=== PATIENT | female | born 1990 | race Caucasian/White ===

== ENCOUNTER 2019-08-25 10:40 | Emergency (ER) | payer OTHER ==
--- OUTSIDE RECORDS SUMMARY | 2019-08-25 10:54 | XMS REPORT | Continuity of Care Document ---
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 Medicine Problems Description No Information Available Social History Type Date Description Comments Sex Unknown Tobacco Use Start: Unknown Never Smoked Cigarettes Smoking Status Reviewed: 07/14/19 Never Smoked Cigarettes ETOH Use Denies alcohol use Tobacco Use Start: Unknown Patient has never smoked Recreational Drug Use Denies Drug Use Exercise Type/Frequency Exercises regularly Allergies, Adverse Reactions, Alerts Active Allergies Reaction Severity Comments Date 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 Severe 04/24/2019 Extract Inactive Allergies NKDA 04/24/2019 Medications Active Medications SIG Qnty Indications Ordering Provider Date No Active Medications Unknown 07/14/2019 History Medications No Active Medications Unknown 04/24/2019 - 04/24/2019 Immunizations Description No Information Available Vital Signs Date Vital Result Comment 07/14/2019 2:59pm Height 64.5 inches 5'4.50" Weight 167.00 lb Heart Rate 87 /min BP Systolic 128 mmHg BP Diastolic 78 mmHg O2 % BldC Oximetry 100 % BMI (Body Mass Index) 28.2 kg/m2 Last Menstrual Period [id number] 04/24/2019 1:01pm Height 64.5 inches 5'4.50" Weight 170.00 lb Heart Rate 73 /min BP Systolic Sitting 124 mmHg BP Diastolic Sitting 77 mmHg O2 % BldC Oximetry 100 % BMI (Body Mass Index) 28.7 kg/m2 Results Description No Information Available Procedures Description No Information Available Medical Devices Description No Information Available Encounters Type Date Location Provider Dx Diagnosis Office Visit 06/17/2019 [facility] Dermatology Telma Mojica, D22.5 Melanocytic nevi of 4:30p trunk Z08 Encntr for follow-up exam after trtmt for malignant neoplasm Z85.820 Personal history of malignant melanoma of skin Office Visit 04/24/2019 1:00p [facility] Internal Luna J06.9 Acute upper Medicine - MD [facility] respiratory Ccmob infection, unspecified Z85.820 Personal history of malignant melanoma of skin Assessments Date Code Description Provider 07/14/2019 N97.9 Female infertility, unspecified ROBERTO Abernathy-Luis 06/17/2019 D22.5 Melanocytic nevi of trunk Telma Mojica MD 06/17/2019 Z08 Encounter for follow-up examination after Telma Mojica MD completed treatment for malignant neoplasm 06/17/2019 Z85.820 Personal history of malignant melanoma of Telma Mojica MD skin 04/24/2019 J06.9 Acute upper respiratory infection, Luna Rendon MD unspecified 04/24/2019 Z85.820 Personal history of malignant melanoma of Luna Rendon MD skin Plan of Treatment Future Appointment(s):12/17/2019 4:15 pm - Telma Mojica MD at [facility] Lysgapuazon50/30/2019 - ROBERTO Abernathy-CdeN97.9 Female infertility, unspecified Functional Status Description No Information Available Mental Status Description No Information Available Referrals Description No Information Available
--- OUTSIDE RECORDS SUMMARY | 2019-08-25 10:54 | XMS REPORT | Continuity of Care Document ---
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 Medicine Problems Description No Information Available Social [...] Available Vital Signs Date Vital Result Comment 08/21/2019 11:33am Height 64.5 inches 5'4.50" Weight 161.50 lb Heart Rate 90 /min BP Systolic 135 mmHg BP Diastolic 74 mmHg O2 % BldC Oximetry 100 % BMI (Body Mass Index) 27.3 kg/m2 07/14/2019 2:59pm Height 64.5 inches 5'4.50" Weight 167.00 lb Heart Rate 87 /min BP Systolic 128 mmHg BP Diastolic 78 mmHg O2 % BldC Oximetry 100 % BMI (Body Mass Index) 28.2 kg/m2 Last Menstrual Period [id number] Results Description No Information Available Procedures Description No Information Available Medical Devices Description No Information Available Encounters Type Date Location Provider Dx Diagnosis Office Visit 07/14/2019 [facility] Cielo Bullock, N97.9 Female infertility, 3:00p [facility] unspecified Office Visit 06/17/2019 [facility] D[facility] Telma Mojica, D22.5 Melanocytic nevi of 4:30p trunk Z08 Encntr for follow-up exam after trtmt for malignant neoplasm Z85.820 Personal history of malignant melanoma of skin Office Visit 04/24/2019 1:00p [facility] Internal Luna J06.9 Acute upper Medicine - MD [facility] respiratory Ccmob infection, unspecified Z85.820 Personal history of malignant melanoma of skin Assessments Date Code Description Provider 08/21/2019 O21.0 Mild hyperemesis gravidarum Ciel[facility] Bullock, [facility] [place]2019 N97.9 Female infertility, unspecified Cielo Bullock, [facility] 06/17/2019 D22.5 Melanocytic nevi of trunk Telma [...] 4:15 pm - Telma Mojica MD at [facility] Flieavyuccv27/06/2020 - Cielo Bullock [facility]O21.0 Mild hyperemesis gravidarumNew Xrays:US Transvaginal, Ordered: 08/21/19Follow up:after sonoRecommendations:1. Eat small frequent meals to avoid an empty or full stomach. Some women are more sensitive to spicy high-fat or acidic foods. Experimented with eliminating some of these in your diet to see if it helps the nausea. 2. Eating foods that are bland and are higher in simple carbohydrates are often tolerated well during this time. 3. Taking a supplement with Azalia can sometimes be helpful for stomach upset. 4. Doxylamine Syccinate 10 and Pyridoxine 10 mg can be taken at bed time and can be used in the morning and afternoon if helpful. The biggest side effect is drowziness from the Doxylamine. Functional Status Description No Information Available Mental Status Description No Information Available Referrals Description No Information Available
[2019-08-25] MEDS ORDERED: Ondansetron INJ* 2 MG/ML VIAL IV ONE (12:49)
[2019-08-25] MEDS ORDERED: NS 0.9% 1000 ML** 2,000 ML IV ONE (12:49)
[2019-08-25 13:16] LABS: ABS Lymphocytes 1.4 10^3/ul (1.0-4.8); ABS Monocytes 0.8 10^3/ul (0-0.8); Eosinophil % 0.2 %; Hematocrit 42 % (35-47); Hemoglobin 14.4 g/dL (12.0-16.0); Lymphocyte % 11.4 %; Mean Corpuscular HGB Conc 35 g/dL (31-36); Mean Corpuscular Hemoglobin 29 pg (27-31); Mean Corpuscular Volume 84 fL (80-97); Mean Platelet Volume 9.6 fL (7.4-10.4); Platelet Count 221 10^3/uL (150-450); Red Blood Count 4.95 10^6 /uL (3.70-4.87); Red Cell Distribution Width 14 % (10-15); White Blood Count 12.3 10^3/uL (3.5-10.8)
[2019-08-25 13:32] LABS: Albumin 4.6 g/dL (3.2-5.2); Albumin/Globulin Ratio 1.6 (1-3); BUN/Creatinine Ratio 16.2 (8-20); Calcium 9.5 mg/dL (8.6-10.3); EGFR African American 125.6 (>60); EGFR Non-African American 103.8 (>60); Globulin 2.8 g/dL (2-4); Potassium 3.7 mmol/L (3.5-5.0); Total Bilirubin 0.6 mg/dL (0.2-1.0); Total Protein 7.4 g/dL (6.4-8.9)
[2019-08-25] MEDS: Metoclopramide IV* 5 MG/ML 2 ML VIAL IV ONE ×2 (13:55→15:20)
[2019-08-25 16:28] VITALS: BP 119/59
--- NOTE | 2019-08-25 16:31 | ED ---
- HPI Summary HPI Summary: This patient is a 29-year-old 7.5 weeks female who presents to the ED with nausea and vomiting times several days. Patient states she is very dehydrated and is unable to keep food down. 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 she had a confirmed on urine test. She states she ordered B6, however this has not arrived. She has not taken anything else over the counter for relief. She did start on vitamins, however has only been able to keep them down for a few days and over the past several days has not been able to take them due to nausea and vomiting. She does feel dehydrated. She denies any abdominal pain. She denies any vaginal pain or discharge. Denies any vaginal bleeding. Denies any urinary symptoms or back pain. Denies weakness or recent illness. - History of Current Complaint Chief Complaint: EDOBProblems Stated Complaint: DEHYDRATION/7 WEEKS PREG PER PT Time Seen by Provider: 08/25/19 12:44 Hx Obtained From: Patient Onset/Duration: Started Days Ago Timing: Constant Severity: Moderate Current Severity: Moderate Pain Intensity: 0 Character: None Associated Signs and Symptoms: Positive: Nausea, Vomiting - Assessment Hx Now: No - Allergies/Home Medications Allergies/Adverse Reactions: Allergies Allergy/AdvReac Type Severity Reaction Status Date / Time Adhesive Tape Allergy Rash Verified 08/25/19 10:45 MS Banana [Banana] Allergy THROAT Verified 08/25/19 10:45 CLOSES PMH/Surg Hx/FS Hx/Imm Hx Previously Healthy: Yes Endocrine/Hematology History: Denies: Hx Diabetes, Hx Thyroid Disease Cardiovascular History: Denies: Hx Hypercholesterolemia, Hx Hypertension, Hx Peripheral Vascular Disease, Other Cardiovascular Problems/Disorders Respiratory History: Denies: Hx Asthma, Hx Chronic Obstructive Pulmonary Disease (COPD) GI History: Denies: Hx Ulcer Musculoskeletal History: Denies: Hx Arthritis, Hx Osteoporosis, Other Musculoskeletal History Sensory History: Denies: Hx Cataracts, Hx Contacts or Glasses, Hx Glaucoma, Hx Hearing Aid Opthamlomology History: Denies: Hx Cataracts, Hx Contacts or Glasses, Hx Glaucoma Neurological History: Denies: Hx Headaches, Hx Seizures, Hx Transient Ischemic Attacks (TIA), Other Neuro Impairments/Disorders Psychiatric History: Denies: Hx Anxiety, Hx Depression - Surgical History Hx Anesthesia Reactions: No - Immunization History Hx Pertussis Vaccination: No Immunizations Up to Date: Yes Infectious Disease History: No Infectious Disease History: Denies: Hx Hepatitis, Hx Human Immunodeficiency Virus (HIV), Traveled Outside the [place] in Last 30 Days - Social History Occupation: Employed Full-time Lives: With Family Alcohol Use: None Hx Substance Use: No Substance Use Type: Reports: None Smoking Status (MU): Never Smoked Tobacco Have You Smoked in the Last Year: No Review of Systems Negative: Fever, Chills, Fatigue, Skin Diaphoresis Negative: Chest Pain Negative: Shortness Of Breath, Cough Positive: Vomiting, Nausea. Negative: Abdominal Pain, Diarrhea Genitourinary: Negative Positive: no symptoms reported, see HPI Negative: Arthralgia, Myalgia Neurological: Negative All Other Systems Reviewed And Are Negative: Yes Physical Exam - Physical Exam Triage Information Reviewed: Yes Vital Signs Reviewed: Yes Appearance: Positive: Well-Appearing, Well-Nourished Skin: Positive: Warm, Skin Color Reflects Adequate Perfusion Head/Face: Positive: Normal Head/Face Inspection Eyes: Positive: EOMI, STEVE, Conjunctiva Clear Neck: Positive: Supple, Nontender, No Lymphadenopathy Respiratory/Lung Sounds: Positive: Clear to Auscultation, Breath Sounds Present Cardiovascular: Positive: RRR, Pulses are Symmetrical in both Upper and Lower Extremities Musculoskeletal: Positive: Normal, Strength/ROM Intact Neurological: Positive: Sensory/Motor Intact, Alert, Oriented to Person Place, Time, Speech Normal Psychiatric: Positive: Normal, Affect/Mood Appropriate AVPU Assessment: Alert Procedures - Sedation Patient Received Moderate/Deep Sedation with Procedure: No Diagnostics - Vital Signs Vital Signs Temp Pulse Resp BP Pulse Ox 08/25/19 16:28 98.0 F 77 15 119/59 98 08/25/19 15:16 83 113/66 97 08/25/19 15:00 83 100 08/25/19 14:46 81 111/65 99 08/25/19 14:16 76 119/67 100 08/25/19 14:00 77 100 08/25/19 13:57 82 118/68 100 08/25/19 13:46 70 118/66 100 08/25/19 13:11 85 100 08/25/19 10:42 97.9 F 107 16 121/85 99 - Laboratory Lab Results: Lab Results 08/25/19 08/25/19 08/25/19 Range/Units 13:02 13:02 13:02 WBC 12.3 H (3.5-10.8) 10^3/uL RBC 4.95 H (3.70-4.87) 10^6 /uL Hgb 14.4 (12.0-16.0) g/dL Hct 42 (35-47) % MCV 84 (80-97) fL MCH 29 (27-31) pg MCHC 35 (31-36) g/dL RDW 14 (10-15) % Plt Count 221 (150-450) 10^3/uL MPV 9.6 (7.4-10.4) fL Neut % (Auto) 81.3 % Lymph % (Auto) 11.4 % [place] % (Auto) 6.8 % Eos % (Auto) 0.2 % Baso % (Auto) 0.3 % Absolute Neuts (auto) 10.0 H (1.5-7.7) 10^3/ul Absolute Lymphs (auto) 1.4 (1.0-4.8) 10^3/ul Absolute Monos (auto) 0.8 (0-0.8) 10^3/ul Absolute Eos (auto) 0.0 (0-0.6) 10^3/ul Absolute Basos (auto) 0.0 (0-0.2) 10^3/ul Absolute Nucleated RBC 0.0 10^3/ul Nucleated RBC % 0.0 Sodium 137 (135-145) mmol/L Potassium 3.7 (3.5-5.0) mmol/L Chloride 104 (101-111) mmol/L Carbon Dioxide 22 (22-32) mmol/L Anion Gap 11 (2-11) mmol/L BUN 11 (6-24) mg/dL Creatinine 0.68 (0.51-0.95) mg/dL Est GFR ( Amer) 125.6 (>60) Est GFR (Non-Af Amer) 103.8 (>60) BUN/Creatinine Ratio 16.2 (8-20) Glucose 89 (70-100) mg/dL Lactic Acid 0.9 (0.5-2.0) mmol/L Calcium 9.5 (8.6-10.3) mg/dL Total Bilirubin 0.60 (0.2-1.0) mg/dL AST 20 (13-39) U/L ALT 24 (7-52) U/L Alkaline Phosphatase 41 (34-104) U/L Total Protein 7.4 (6.4-8.9) g/dL Albumin 4.6 (3.2-5.2) g/dL Globulin 2.8 (2-4) g/dL Albumin/Globulin Ratio 1.6 (1-3) Result Diagrams: 08/25/19 13:02 08/25/19 13:02 Lab Statement: Any lab studies that have been ordered have been reviewed, and results considered in the medical decision making process. Course/Dx - Course Course Of Treatment: This patient is evaluated for nausea, vomiting and dehydration related to . Labs were obtained which are fairly unremarkable. Patient was given 2 L fluids as well as Reglan with good relief. She is taking PO well. Reglan will be prescribed to her. She is symptom free and OK for DC at this time. Will have follow up with OBGYN and US as outpatient. - Differential Diagnosis/HQI/PQRI: Other: - dehydration - Diagnoses Provider Diagnoses: Nausea and vomiting during Discharge ED - Sign-Out/Discharge Documenting (check all that apply): Patient Departure - Discharge Plan Condition: Stable Disposition: HOME Prescriptions: Metoclopramide TAB* [Reglan TAB*] 10 mg PO Q6H PRN #30 tab PRN Reason: Nausea Patient Education Materials: Nausea and Vomiting in (ED) Referrals: Becky Delarosa MD [Primary Care Provider] - Additional Instructions: Eat small amounts at a time including chicken noodle soup, toast, crackers, Jell -O, applesauce, bananas I would suggest taking Reglan tab approximately 20 minutes before you planned to eat at least until you regulate your nausea and vomiting Drink plenty of fluids including water, Gatorade and nicholas jhoan may help You may also supplement with B6 for nausea control - Billing Disposition and Condition Condition: STABLE Disposition: Home
== END 2019-08-25 16:28 | disposition home or self-care (01) ==
LOC: ED 10:40
DX: O21.0 Mild hyperemesis gravidarum (principal); Z3A.01 Less than 8 weeks gestation of pregnancy
CPT/HCPCS: 36415; 80053; 83605; 85025; 96361; 96374; 99283; J2405; J2765

== ENCOUNTER 2020-02-28 17:02 | Inpatient (IN) ==
[2020-02-28] MEDS ORDERED: Penicillin G Potassium IV 5,000,000 UNITS in NS 0.9% 100 ml BAG 100 ML IVPB ONE (18:25)
[2020-02-28] MEDS ORDERED: Lactated Ringers 1000 ml BAG 1,000 ML IV ONE (18:25)
[2020-02-28] MEDS: Betamethasone 6 mg/ml 5 ml VIAL IM SCH (19:03)
[2020-02-28 19:15] LABS: ABS Basophils 0.1 10^3/ul (0-0.2); ABS Lymphocytes 1.5 10^3/ul (1.0-4.8); ABS Monocytes 1.3 10^3/ul (0-0.8); ABS Neutrophils 14.6 10^3/ul (1.5-7.7); Eosinophil % 0.2 %; Hematocrit 34 % (35-47); Hemoglobin 11.8 g/dL (12.0-16.0); Lymphocyte % 8.3 %; Mean Corpuscular HGB Conc 35 g/dL (31-36); Mean Corpuscular Hemoglobin 30 pg (27-31); Mean Corpuscular Volume 86 fL (80-97); Mean Platelet Volume 10.6 fL (7.4-10.4); Platelet Count 178 10^3/uL (150-450); Red Blood Count 3.97 10^6 /uL (3.70-4.87); Red Cell Distribution Width 14 % (10-15); White Blood Count 17.5 10^3/uL (3.5-10.8)
[2020-02-28 19:17] LABS: Urine Appearance Cloudy; Urine Bilirubin Negative (Negative); Urine Blood 1+ (Negative); Urine Color Amber; Urine Glucose Negative (Negative); Urine Ketones Negative (Negative); Urine Nitrite Negative (Negative); Urine Protein 1+(30 mg/dL) (Negative); Urine Specific Gravity 1.005 (1.010-1.030); Urine Urobilinogen Negative (Negative)
[2020-02-28 19:35] LABS: Albumin 3.5 g/dL (3.2-5.2); Albumin/Globulin Ratio 1.2 (1-3); BUN/Creatinine Ratio 8.2 (8-20); Calcium 9.4 mg/dL (8.6-10.3); EGFR African American 142.4 (>60); EGFR Non-African American 117.7 (>60); Potassium 3.4 mmol/L (3.5-5.0); Total Bilirubin 0.6 mg/dL (0.2-1.0); Total Protein 6.5 g/dL (6.4-8.9); Uric Acid 3.7 mg/dL (2.3-6.6)
[2020-02-28 19:39] LABS: Urine Bacteria Absent (Absent); Urine Red Blood Cell 1+(3-5/hpf) (Absent); Urine Squamous Epithelial Cell Present (Absent); Urine White Blood Cell 3+(>20/hpf) (Absent)
[2020-02-28 19:42] LABS: Urine Benzodiazepine Screen None Detected (None Detect); Urine Cannabinoids Screen None Detected (None Detect); Urine Opiates Screen None Detected (None Detect)
[2020-02-28 21:58] LABS: Activated Partial Thrombo Time 22.9 seconds (26.0-38.0); Fibrinogen 736.7 mg/dL (110.8-404.3)
[2020-02-28] MEDS ORDERED: Oxytocin in LR 20 UNITS/1,000 ML BAG IVPB SCH (22:00)
[2020-02-28 22:08] LABS: Schistocytes ABSENT
[2020-02-28 22:11] LABS: Platelet Count 190 10^3/ul (150-450)
[2020-02-28] MEDS: Penicillin G Potassium IV 3,000,000 UNITS in NS 0.9% 100 ml BAG 100 ML IVPB SCH (23:35)
[2020-02-29] MEDS ORDERED: OBEPIDURAL 250 ML EPIDURAL ONE (00:13)
[2020-02-29 00:36] LABS: Hematocrit 34 % (35-47); Hemoglobin 11.9 g/dL (12.0-16.0); Mean Corpuscular HGB Conc 35 g/dL (31-36); Mean Corpuscular Hemoglobin 30 pg (27-31); Mean Corpuscular Volume 87 fL (80-97); Mean Platelet Volume 11.1 fL (7.4-10.4); Platelet Count 186 10^3/uL (150-450); Red Blood Count 3.95 10^6 /uL (3.70-4.87); Red Cell Distribution Width 14 % (10-15); White Blood Count 18.8 10^3/uL (3.5-10.8)
[2020-02-29] MEDS ORDERED: Lactated Ringers 1000 ml BAG 1,000 ML IV ONE (02:12)
[2020-02-29] MEDS ORDERED: Phenylephrine 40 mcg/mL 10mL (400mcg) SYRINGE IV PUSH PRN ×2 (02:12)
[2020-02-29] MEDS ORDERED: Sodium Citrate/Citric Acid LIQ 15 ML UDC PO PRN (02:12)
[2020-02-29] MEDS ORDERED: Lactated Ringers 1000 ml BAG 500 ML IV PRN ×2 (02:12)
[2020-02-29] MEDS ORDERED: Lactated Ringers 1000 ml BAG 1,000 ML IV SCH ×2 (03:00→07:00)
[2020-02-29] MEDS ORDERED: OBEPIDURAL 250 ML EPIDURAL SCH (03:00)
[2020-02-29] MEDS: Penicillin G Potassium IV 3,000,000 UNITS in NS 0.9% 100 ml BAG 100 ML IVPB SCH (03:40)
[2020-02-29] MEDS ORDERED: Witch Hazel PAD JAR TOPICAL PRN (06:53)
[2020-02-29] MEDS ORDERED: Dibucaine 1% OINT 28.35 GM TUBE PR PRN (06:53)
[2020-02-29 10:29] LABS: Hematocrit 31 % (35-47); Hemoglobin 10.2 g/dL (12.0-16.0); Mean Corpuscular HGB Conc 33 g/dL (31-36); Mean Corpuscular Hemoglobin 29 pg (27-31); Mean Corpuscular Volume 88 fL (80-97); Mean Platelet Volume 10.8 fL (7.4-10.4); Platelet Count 196 10^3/uL (150-450); Red Blood Count 3.49 10^6 /uL (3.70-4.87); Red Cell Distribution Width 14 % (10-15); White Blood Count 27.7 10^3/uL (3.5-10.8)
[2020-02-29 10:34] LABS: ABS Basophils 0.2 10^3/ul (0-0.2); ABS Lymphocytes 1.3 10^3/ul (1.0-4.8); ABS Monocytes 1.6 10^3/ul (0-0.8); ABS Neutrophils 24.6 10^3/ul (1.5-7.7); Eosinophil % 0.1 %; Lymphocyte % 4.8 %
[2020-02-29 10:55] LABS: Albumin/Globulin Ratio 1.2 (1-3); BUN/Creatinine Ratio 8.9 (8-20); Calcium 8.9 mg/dL (8.6-10.3); EGFR African American 157.1 (>60); EGFR Non-African American 129.9 (>60); Globulin 2.5 g/dL (2-4); Potassium 3.5 mmol/L (3.5-5.0); Total Bilirubin 0.5 mg/dL (0.2-1.0); Total Protein 5.5 g/dL (6.4-8.9)
[2020-02-29] MEDS: Betamethasone 6 mg/ml 5 ml VIAL IM SCH (13:05)
[2020-03-01 07:11] LABS: ABS Eosinophils 0.1 10^3/ul (0-0.6); ABS Lymphocytes 2.3 10^3/ul (1.0-4.8); ABS Monocytes 1.4 10^3/ul (0-0.8); ABS Neutrophils 13.7 10^3/ul (1.5-7.7); Eosinophil % 0.5 %; Hematocrit 29 % (35-47); Hemoglobin 10.2 g/dL (12.0-16.0); Mean Corpuscular HGB Conc 35 g/dL (31-36); Mean Corpuscular Hemoglobin 30 pg (27-31); Mean Corpuscular Volume 87 fL (80-97); Mean Platelet Volume 10.5 fL (7.4-10.4); Platelet Count 155 10^3/uL (150-450); Red Blood Count 3.35 10^6 /uL (3.70-4.87); Red Cell Distribution Width 14 % (10-15); White Blood Count 17.5 10^3/uL (3.5-10.8)
[2020-03-01 12:10] LABS: Albumin/Globulin Ratio 1.1 (1-3); BUN/Creatinine Ratio 16.7 (8-20); Calcium 8.9 mg/dL (8.6-10.3); EGFR African American 145.1 (>60); EGFR Non-African American 119.9 (>60); Globulin 2.7 g/dL (2-4); Potassium 3.4 mmol/L (3.5-5.0); Total Bilirubin 0.3 mg/dL (0.2-1.0); Total Protein 5.7 g/dL (6.4-8.9)
[2020-03-02 08:12] VITALS: BP 129/72
== END 2020-03-02 13:01 | disposition home or self-care (01) | DRG 560 ==
LOC: MCHOBOUT 17:02 → MCHOB 17:46
PROVIDERS: ADMIT Obstetrics & Gynecology; ATTEND Obstetrics & Gynecology